=== PATIENT | female | born 1950 | race Caucasian/White ===

== ENCOUNTER 2019-06-02 08:45 | Outpatient (CLI) | payer MEDICARE ==
--- NOTE | 2019-06-02 12:10 | CT ---
EXAM: CT Pulmonary Lung Scan PROVIDED CLINICAL HISTORY: Nicotine dependence. COMPARISON: 04/25/2017 FINDINGS: There are 2 tiny approximately 2 to 3 mm nodular densities seen in the anterior aspect of the right u pper lobe not definitely visualized on prior exam. No additional pulmonary nodule or mass is seen, and there is no pleural effusion. There is minimal linear scarring seen at the periphery of the lungs probably in the right upper lobe. There is a tiny subpleural linear density with slight nodularity, and this measures less than 4 mm. Lack of intravenous contrast limits evaluation of mediastinal structures, but no enlarged lymph nodes are seen. Vascular calcifications are again seen in the coronary arteries and involving the thoracic aorta. Postcholecystectomy changes are noted. There has been no other interval change when compared to prior exam. IMPRESSION: Lung RADS category 2 - continued annual screening low dose CT scan in 12 months is recommended. There are two tiny 2 to 3 mm pulmonary nodules seen in the anterior right upper lobe.
== END 2019-06-02 08:46 | disposition home or self-care (01) ==
LOC: CT 08:45
PROVIDERS: ATTEND Nurse Practitioner
DX: F17.210 Nicotine dependence, cigarettes, uncomplicated (principal); R91.8 Other nonspecific abnormal finding of lung field
CPT/HCPCS: G0297